=== PATIENT | female | born 1960 | race Caucasian/White ===

== ENCOUNTER → 2020-05-17 09:03 | Outpatient (BNVA) | payer OTHER, SELFPAY | PROVIDERS: PCP Nurse Practitioner Family; Visit Provider Specialist | DX: G43.711 Chronic migraine without aura, intractable, with status migrainosus (principal); R26.81 Unsteadiness on feet; Z87.891 Personal history of nicotine dependence | CPT/HCPCS: 99204 ==

== ENCOUNTER 2020-06-28 07:00 | Outpatient (CLI) | payer OTHER, SELFPAY ==
--- NOTE | 2020-06-28 07:15 | MR_ITS ---
WS: [id number] MRI BRAIN WITHOUT CONTRAST HISTORY: G43.909 - Migraine, unspecified, not intractable, without status migrainosus COMPARISON: None available. TECHNIQUE: Diffusion imaging, multiplanar T1, T2 and FLAIR imaging obtained. No evidence for acute infarct or hemorrhage. Alaniz-white matter differentiation is normal. Very minima l chronic microvascular type changes within the white matter. No prior infarcts. No remote or acute infarcts are volume loss. Ventricles and extra-axial spaces are normal. No inferior displacement of cerebellar tonsils. The sella turcica and pituitary gland are unremarkabl e. Posterior fossa is also unremarkable. Dural venous sinuses and [place] demonstrate no abnormality on this unenhanced studies. Paranasal sinuses: Clear. Mastoid air cells: Small bilateral mastoid air cell effusions. Calvarium and scalp: Intact. MR/MR head wo con* [id number] IMPRESSION: 1. No acute infarct or edema. 2. Minimal chronic microvascular type ischemic changes. 3. Small bilateral mastoid air cell effusions.
== END 2020-06-28 07:01 | disposition home or self-care (01) ==
LOC: RADSHAW 07:02
PROVIDERS: PCP Nurse Practitioner Family; Visit Provider Specialist
DX: G43.711 Chronic migraine without aura, intractable, with status migrainosus (principal); R26.81 Unsteadiness on feet; R90.82 White matter disease, unspecified; Z87.891 Personal history of nicotine dependence
CPT/HCPCS: 70551; 99214

== ENCOUNTER → 2021-01-03 07:54 | Outpatient (BNVA) | payer OTHER, SELFPAY | PROVIDERS: PCP Family Medicine; Visit Provider Specialist | DX: G43.711 Chronic migraine without aura, intractable, with status migrainosus (principal); R26.81 Unsteadiness on feet | CPT/HCPCS: 99213; 99214 ==